=== PATIENT | male | born 1950 | race Caucasian/White ===

== ENCOUNTER 2018-02-12 07:30 | Day surgery (SDC) | payer BC ==
[~2018-02-12 07:30] MED LIST: ACETAMINOPHEN 1,000 MG/100 ML BTL IV ONE
[2018-02-12] MEDS ORDERED: EPHEDRINE SULFATE 50 MG/ML ML IV ONE (07:31)
[2018-02-12] MEDS ORDERED: FENTANYL PF 100MCG/2ML VIAL IV ONE (07:31)
[2018-02-12] MEDS ORDERED: MIDAZOLAM HCL 2MG/2ML VIAL IV ONE (07:31)
[2018-02-12] MEDS ORDERED: SEVOFLURANE 250 ML INH ONE (07:31)
[2018-02-12] MEDS ORDERED: ONDANSETRON HCL IV 4 MG/2 ML VIAL IVP ONE (07:31)
[2018-02-12] MEDS ORDERED: PROPOFOL 10 MG/ML VIAL IV ONE (07:31)
[2018-02-12] MEDS ORDERED: KETOROLAC 30 MG/ML VIAL IVP ONE (07:31)
[2018-02-12] MEDS ORDERED: LIDOCAINE 2% MDV (20MG/ML) 20ML VIAL IV ONE (07:31)
--- NOTE | 2018-02-13 10:00 | Operative Note ---
DATE OF SURGERY: 02/12/2018 Surgeon: Colten Hatch DO PREOPERATIVE DIAGNOSIS: Mucinous cyst of the right middle finger. POSTOPERATIVE DIAGNOSIS: Mucinous cyst of the right middle finger. OPERATION: Excision of mucinous cyst of the right middle finger using 3.5 loop magnification. DESCRIPTION OF PROCEDURE: This 67-year-old male was taken to the operating room and placed in the supine position on the operating room table. General anesthetic was administered. The right upper extremity was prepped with Hibiclens and draped in the usual sterile fashion. The mucinous cyst was approximately a centimeter or so in greatest dimension on the dorsal radial aspect of the PIP joint of the right middle finger. Dissection was carried transversely across the extensor crease overlying the dome of the cyst, and the skin was undermined to peel the epithelial layer of the cyst off of the subcutaneous tissue. This was done on both sides to expose the stalk of the cyst emanating from the DIP joint on the radial aspect of the extensor tendon. The tendon was easily identified and protected during the operative procedure. An arthrotomy incision was performed to remove the stalk of the ganglion and then the wound was irrigated with lactated Ringer's solution. Hemostasis was obtained with the electrocautery and the wound was closed with interrupted 6-0 nylon suture. Sterile dressings were applied and the patient was taken to the recovery room in satisfactory condition. GROSS PATHOLOGY: This patient demonstrated a mucinous-type cyst emanating from the DIP joint on the dorsal radial surface. A small arthrotomy incision was made to remove the stalk of the ganglion diving into the DIP joint. The specimen was sent to pathology for analysis. CC: BERTA HORTA MD, FACP FAHAD
== END 2018-02-12 10:43 | disposition home or self-care (01) ==
LOC: SUR 07:30
PROVIDERS: ATTEND Orthopaedic Surgery
DX: M71.349 Other bursal cyst, unspecified hand (principal); I10 Essential (primary) hypertension; E78.00 Pure hypercholesterolemia, unspecified; M10.9 Gout, unspecified
CPT/HCPCS: 11421; 00400; J1885; J2405; J3010

== ENCOUNTER 2019-03-31 11:20 | Day surgery (SDC) | payer BC ==
[2019-03-31] MEDS ORDERED: LIDOCAINE 2% MDV (20MG/ML) 20ML VIAL IV ONE (11:21)
[2019-03-31] MEDS ORDERED: PROPOFOL 10 MG/ML VIAL IV ONE (11:21)
--- NOTE | 2019-04-01 11:10 | Operative Note ---
OPERATION: COLONOSCOPY to the cecum. INDICATION: Prior history of adenomatous polyps removed. He returns at this time after 5 years for surveillance. His last examination 5 years ago was free from polyps. ANESTHESIA: Intravenous sedation was administered by the department of anesthesiology and included Diprivan titrated to effect. PROCEDURE: Following informed consent from this alert individual including a discussion of the risks and benefits of the procedure and an opportunity for the patient to ask questions, the patient was in the left lateral decubitus position. A digital rectal examination was performed. No abnormalities were noted. Following this, the Olympus [id number] video colonoscope was inserted into the rectum without resistance. The rectal mucosa had a normal appearance with normal folds and distensibility. The colonoscope was advanced up through the colon to the level of the cecum. Throughout the bowel the mucosa appeared normal, the folds were normal, and the bowel was fairly well distensible. A few scattered diverticula were noted in the sigmoid region. The cecum was well defined by noting the appendiceal orifice and ileocecal valve. Overall, the colon preparation is good. From the base of the cecum, the colonoscope was slowly withdrawn. No polyps were noted throughout. Retroflexion in the rectum was endoscopically unremarkable. The endoscope was straightened and removed. The patient tolerated the procedure well and was returned to the recovery area in stable condition. IMPRESSION: 1. Sigmoid diverticulosis. 2. Otherwise unremarkable colonoscopy to the cecum. RECOMMENDATIONS: The patient was advised to have recheck colonoscopy in 5 years' time or sooner if problems arise. Followup will otherwise be with Dr. Weller. As always, thank you for allowing me to participate in the care of your patient. FAHAD
== END 2019-03-31 13:48 | disposition home or self-care (01) ==
LOC: HOP 11:20
PROVIDERS: ATTEND Internal Medicine Gastroenterology
DX: Z12.11 Encounter for screening for malignant neoplasm of colon (principal); Z86.010 Personal history of colon polyps; K57.30 Diverticulosis of large intestine without perforation or abscess without bleeding; I10 Essential (primary) hypertension; E78.00 Pure hypercholesterolemia, unspecified; M10.9 Gout, unspecified; M19.90 Unspecified osteoarthritis, unspecified site
CPT/HCPCS: 00812; G0105

== ENCOUNTER 2019-06-20 01:04 | Emergency (ER) | payer BC ==
--- NOTE | 2019-06-20 01:26 | Emergency Department Record ---
History of Present Illness - General Chief Complaint: Abdominal Pain Stated Complaint: ABDOMINAL PAIN Time Seen by Provider: 06/20/19 01:21 Source: Patient Mode of Arrival: Ambulatory Limitations: No limitations - History of Present Illness Initial Comments: 69 yo male presents to ED for evaluation of LLQ abdominal pain symptoms that began approximately 7 hours ago. Patient reports mild loose stools present, denies fever, nausea, vomiting, or change in stools. Patient denies chest discomfort, denies SOB symptoms. Patient denies health problems at his baseline, and denies previously abdominal surgery. MD Complaint: Abdominal pain Onset/Timin -: Hour(s) Location: LUQ Radiation: L flank, LUQ Severity: Moderate Severity scale (1-10): 7 Quality: Burning Consistency: Constant Improves With: Nothing Worsens With: Nothing Associated Symptoms: Nausea, Vomiting - Related Data Home Medications Medication Instructions Recorded Confirmed Last Taken Allopurinol 300 mg PO DAILY 06/20/19 06/20/19 Unknown Atenolol 100 mg PO QHS 06/20/19 06/20/19 06/19/19 Meloxicam 15 mg PO QHS 06/20/19 06/20/19 06/19/19 Quinapril HCl [Accupril] 20 mg PO DAILY 06/20/19 06/20/19 06/19/19 Simvastatin 40 mg PO QHS 06/20/19 06/20/19 06/19/19 Allergies Allergy/AdvReac Type Severity Reaction Status Date / Time No Known Drug Allergies Allergy Verified 02/06/18 08:25 Travel Screening - Travel/Exposure Within Last 30 Days Have you traveled within the last 30 days?: No - Travel Symptoms Symptom Screening: None Review of Systems Constitutional: Denies: Chills, Fever, Malaise, Night sweats Eyes: Denies: Eye discharge, Eye pain ENT: Denies: Congestion, Ear pain, Epistaxis Respiratory: Denies: Cough, Dyspnea Cardiovascular: Denies: Chest pain, Dyspnea on exertion Endocrine: Denies: Fatigue, Heat or cold intolerance Gastrointestinal: Reports: Abdominal pain, Diarrhea. Denies: Nausea, Vomiting Genitourinary: Denies: Incontinence, Retention Musculoskeletal: Denies: Arthralgia, Back pain Skin: Denies: Bruising, Change in color Neurological: Denies: Abnormal gait, Confusion, Headache, Seizure Psychiatric: Denies: Anxiety Hematological/Lymphatic: Denies: Anemia, Blood Clots Past Medical History - SOCIAL HISTORY Smoking Status: Former smoker Alcohol Use: None Drug Use: None - RESPIRATORY Hx Respiratory Disorders: No - CARDIOVASCULAR Hx Cardio Disorders: Yes Hx Hypertension: Yes (on meds good control) Comment:: hyperlipidemia. very active - NEURO Hx Neuro Disorders: Yes Hx Neuropathy: Yes (hands, no longer since sx) - GI Hx GI Disorders: Yes Hx Reflux: Yes (hx no longer on medications) Hx of Polyps: Yes Comment:: diverticulosis no diverticulitis - Hx Genitourinary Disorders: No - ENDOCRINE Hx Endocrine Disorders: No - MUSCULOSKELETAL Hx Musculoskeletal Disorders: Yes Hx Arthritis: Yes (in joints) Hx Gout: Yes (controlled with meds) - PSYCH Hx Psych Problems: No - HEMATOLOGY/ONCOLOGY Hx Hematology/Oncology Disorders: No Family Medical History Any Significant Family History?: No Family Hx Comment (NOT TO BE USED IN PLACE OF ITEMS BELOW): none Physical Exam - General General Appearance: Alert, Oriented x3, Cooperative, Mild distress Limitations: No limitations - Head Head exam: Atraumatic, Normocephalic, Normal inspection Head exam detail: negative: Abrasion, Contusion, Gutierrez's sign, General tenderness, Hematoma, Laceration - Eye Eye exam: Normal appearance. negative: Conjunctival injection, Periorbital swelling, Periorbital tenderness, Scleral icterus - ENT Ear exam: negative: Auricular hematoma, Auricular trauma Nasal Exam: negative: Active bleeding, Discharge, Dried blood, Foreign body Mouth exam: negative: Drooling, Laceration, Muffled voice, Tongue elevation - Neck Neck exam: Normal inspection. negative: Meningismus, Tenderness - Respiratory Respiratory exam: Normal lung sounds bilaterally. negative: Rales, Respiratory distress, Rhonchi, Stridor - Cardiovascular Cardiovascular Exam: Regular rate, Normal rhythm, Normal heart sounds - GI/Abdominal GI/Abdominal exam: Soft, Tenderness (TTP LLQ on examination, no rebound, no guarding symptoms). negative: Rebound, Rigid - Rectal Rectal exam: Deferred - exam: Deferred - Extremities Extremities exam: Normal inspection. negative: Pedal edema, Tenderness - Back Back exam: Denies: CVA tenderness (R), CVA tenderness (L) - Neurological Neurological exam: Alert, Normal gait, Oriented X3 - Psychiatric Psychiatric exam: Normal affect, Normal mood - Skin Skin exam: Normal color. negative: Abrasion Type of lesion: negative: abrasion Course Vital Signs 06/20/19 01:11 Temperature 98.1 F Pulse Rate 63 Respiratory 20 Rate Blood Pressure 155/87 Pulse Ox 99 - Reevaluation(s) Reevaluation #1: 06/20/19 01:54 Laboratory studies were reviewed and appear grossly unremarkable for an acute process except for the following: GFr 40 Creatinine 1.8 (baseline 0.7 01/2019) Patient is going for CT imaging at this time Reevaluation #2: 06/20/19 02:27 CT Abdomen and Pelvis: 3 mm obstructing calculus at the left UVJ Moderate left hydronephrosis with cordell-nephric stranding Will consult with Urology at [facility] for further recommendations. Reevaluation #3: 06/20/19 02:42 Case was discussed with Dr. Calderon, will accept the patient for further evaluation. Medical Decision Making - Lab Data Result diagrams: 06/20/19 01:25 06/20/19 01:25 Disposition Disposition: Transfer Clinical Impression: Ureteral calculus, left ARF (acute renal failure) Qualifiers: Acute renal failure type: unspecified Qualified Code(s): N17.9 - Acute kidney failure, unspecified Disposition: [facility] Transfer Transfer To: [facility] Reason For Transfer: ARF, Ureteral calculi Accepting Physician: Kvng Time Discussed w/Accepting Physician: 02:42 Condition: (2) Stable Forms: Patient Portal Access Time of Disposition: 02:42 Quality - Quality Measures Quality Measures: N/A - Blood Pressure Screening Does Patient Have Any of the Following: No Blood Pressure Classification: Pre-Hypertensive BP Reading Systolic Measurement: 155 Diastolic Measurement: 87 Screening for High Blood Pressure: < Pre-Hypertensive BP, F/U Documented > [G8950] Pre-Hypertensive Follow-up Interventions: Referral to alternative/primary care provider.
[2019-06-20 01:35] LABS: ABSOLUTE NEUTROPHIL COUNT 5.96; BASO % 0.8 % (0-6); EOS % 2.4 % (0-6); GRAN % 64.7 % (47-80); HEMATOCRIT 42.7 % (42.0-52.0); LYMPH % 21.6 % (16-45); MEAN CELL VOLUME 91.2 fl (81-97); MEAN CORPUSCULAR HEMOGLOBIN 29.9 pg (27-33); MEAN CORPUSCULAR HGB CONC 32.8 g/dl (32-36); MEAN PLATELET VOLUME 10.6 fl (7.4-10.4); MONO % 10.5 % (0-9); PLATELET COUNT 205 K/uL (130-400); RED BLOOD COUNT 4.68 M/uL (4.40-5.70); RED CELL DISTRIBUTION WIDTH 13.6 % (11.5-14.5); WHITE BLOOD COUNT W/O DIFF 9.2 K/uL (4.2-12.2)
[2019-06-20 01:42] LABS: BILIRUBIN,TOTAL 0.5 mg/dL (0.2-1.0); CREATININE 1.8 mg/dL (0.7-1.2)
[2019-06-20 01:43] LABS: TOTAL PROTEIN 6.9 g/dL (6.6-8.7)
[2019-06-20 01:47] LABS: ALB/GLOB RATIO 1.8 (1.1-1.8); ALBUMIN 4.4 g/dL (4.0-5.0)
[2019-06-20 01:51] LABS: URINE APPEARANCE CLEAR; URINE BILIRUBIN NEGATIVE (NEGATIVE); URINE COLOR YELLOW; URINE GLUCOSE (UA) NEGATIVE (NEGATIVE); URINE KETONE TRACE (NEGATIVE); URINE PROTEIN NEGATIVE (NEGATIVE)
[2019-06-20 01:52] LABS: URINE BLOOD NEGATIVE (NEGATIVE); URINE LEUKOCYTE ESTERASE NEGATIVE (NEGATIVE); URINE NITRITE NEGATIVE (NEGATIVE); URINE UROBILINOGEN 0.2 E.U./dL (0.20 - 1.00)
[2019-06-20] MEDS: ONDANSETRON HCL IV 4 MG/2 ML VIAL IVP ONE (02:05)
[2019-06-20] MEDS: 0.9 % SODIUM CHLORIDE 1000ML 500 ML IV SCH (02:24)
--- NOTE | 2019-06-20 02:26 | CT SCAN REPORT ---
EXAMINATION: CT Abdomen and Pelvis without IV Contrast EXAM DATE: 06/20/2019 2:21 AM TECHNIQUE: Standard protocol CT imaging of the abdomen and pelvis was performed without intravenous c ontrast. INDICATION: LLQ pain COMPARISON: None ENCOUNTER: Not applicable CT ABDOMEN AND PELVIS FINDINGS: Lung Bases: Included extent of the lung bases are clear. Hepatobiliary: The liver has a normal size with a smooth surface. Pancreas: The pancreas is normal. Spleen: The spleen is not enlarged. Adrenals: The adrenal glands are normal. Kidneys, Ureters, & Bladder: 3 mm obstructing calculus at the left ureterovesicular junction. Produce s moderate left hydronephrosis with perinephric fat stranding . Gastrointestinal: The stomach and small bowel are normal with no obstruction or inflammation. The lar ge bowel is within normal limits. Reproductive Organs: Unremarkable Lymphatic System: There is no adenopathy within the abdomen or pelvis. Vasculature: Normal caliber abdominal aorta Peritoneum: No free fluid, free air, or inflammation Abdominal wall & Musculoskeletal: No suspicious bone lesions. Assessment of the solid organs, soft tissues, and vascular structures is overall limited on noncontra st imaging, IMPRESSION: 3 mm obstructing calculus at the left ureterovesicular junction. This produces moderate left hydronep hrosis with perinephric fat stranding Dictated by: Herminia Vicente DO on 06/20/2019 2:23 AM. .
[2019-06-20] MEDS ORDERED: MORPHINE SULFATE 5 MG/ML VIAL IVP ONE (02:52)
[2019-06-20] MEDS: ACETAMINOPHEN 1,000 MG/100 ML BTL IVPB ONE (02:58)
== END 2019-06-20 03:38 | disposition short-term general hospital (02) ==
LOC: ER 01:04
DX: N13.2 Hydronephrosis with renal and ureteral calculous obstruction (principal); N17.9 Acute kidney failure, unspecified; R11.2 Nausea with vomiting, unspecified; R19.7 Diarrhea, unspecified; I10 Essential (primary) hypertension; Z87.891 Personal history of nicotine dependence
CPT/HCPCS: 74176; 80053; 81003; 83690; 85025; 96361; 96365; 96375; 99285; J2405; J7030